=== PATIENT | female | born 1985 | race Caucasian/White ===

== ENCOUNTER → 2017-01-05 | Outpatient (CLI) | payer BC ==
[2017-01-05 16:45] LABS: CH 28.8; CHCM 34.8; HCT 37.9 % (34.0-46.0); HGB 13.2 gm/dL (11.4-16.0); MCH 28.9 pg (25.0-35.0); MCHC 34.8 g/dL (31.0-37.0); MCV 83.1 fL (80.0-100.0); Mean Platelet Volume 7.5; RBC 4.56 m/uL (3.80-5.40); RDW 13.6 % (11.5-15.5); WBC 8.4 k/uL (3.8-10.6)
--- NOTE | 2017-01-05 21:21 | US ---
EXAMINATION TYPE: US pelvic complete DATE OF EXAM: 01/05/2017 COMPARISON: US CLINICAL HISTORY: N92.1 Menometrorrhagia. Patient stated has had continual menses since last delivery via C section 11.5 months ago; . TECHNIQUE: Transvaginal (TV) as patient chose this method since bladder was not full. ) Date of LMP: normal LMP approximately 3 weeks ago per patient EXAM MEASUREMENTS: Uterus: 8.4 x 5.8 x 4.6 cm Endometrial Stripe: 1.0 cm Right Ovary: 3.1 x 2.5 x 2.9 cm Left Ovary: 2.9 x 2.7 x 1.6 cm 1. Uterus: Anteverted; C section scar is noted in FATIMAH; multiple small Nabothian cysts are imaged wit h largest = 0.3 x 0.3 x 0.3cm 2. Endometrium: thickness is wnl correlating with LMP approximately 3 weeks prior 3. Right Ovary: multiple small follicles with largest = 1.2 x 0.8 x 0.8cm; color flow is seen in parag ateral ovary. 4. Left Ovary: multiple small follicles; color flow is seen in bilateral ovary. 5. Bilateral Adnexa: wnl 6. Posterior cul-de-sac: wnl Uterus is heterogeneous in appearance and retroverted and shape. Endometrium measures up to just unde r 10 mm., This is within normal limits for secretory phase of menstrual cycle. No free fluid is seen in pelvis. Both ovaries are seen with multiple peripheral follicles. No suspicious adnexal masses are present. IMPRESSION: No suspicious finding is seen to account for patient's symptoms.
== END | disposition home or self-care (01) ==
LOC: RADUSWWP 15:30
PROVIDERS: ATTEND Obstetrics & Gynecology
DX: N92.1 Excessive and frequent menstruation with irregular cycle (principal)
CPT/HCPCS: 76830; 83001; 83002; 84146; 84443; 85027

== ENCOUNTER 2017-02-11 06:41 | Day surgery (SDC) | payer BC ==
[2017-02-09 10:55] VITALS: BMI 33.3
[~2017-02-11 06:41] MED LIST: DEXAMETHASONE SOD PHOSPHATE 10 MG/ML 1 ML VIAL IV ONE; HYDROmorphone 0.5 MG/0.5 ML SYRINGE IVP PRN; LACTATED RINGERS 1,000 ML IV SCH; MIDAZOLAM 2 MG/2 ML VIAL IV PRN; ONDANSETRON 4 MG/2 ML VIAL IVP ONE; Pre Op ABX Message 1 EACH MISC MISCELLANE ONE
[2017-02-11] MEDS ORDERED: LIDOCAINE 1% 20 ML VIAL (10MG/ML) FOR IV START INTRADERMA ONE (07:07)
[2017-02-11 07:10] VITALS: RESP 16
[2017-02-11] MEDS ORDERED: SCOPOLAMINE 1.5MG/72HR PATCH TRANSDERM ONE (07:10)
[2017-02-11] MEDS ORDERED: LIDOCAINE 1% INJ 10MG/ML (20 ML MDV) ONE (07:43)
[2017-02-11] MEDS ORDERED: fentaNYL (PF) 50 MCG/ML 2 ML AMP ONE (07:43)
[2017-02-11] MEDS ORDERED: PROPOFOL 10 MG/ML 20 ML VIAL IV ONE (07:43)
[2017-02-11] MEDS ORDERED: MIDAZOLAM 2 MG/2 ML VIAL ONE (07:43)
--- NOTE | 2017-02-11 08:11 | P.HPOB ---
History of Present Illness H&P Date: 02/11/17 Chief Complaint: Menorrhagia Lynda complains of very heavy bleeding each cycle. She is uncomfortable with bleeding and has a difficult time function while she is on her period. She is scheduled for a D&C with hysteroscopy NovaSure ablation. Risks/benefits/ alternatives to this procedure were discussed with patient in detail and all questions are answered for her prior to proceeding to the operating room. On physical exam this is an overweight female whose HEENT is unremarkable. Heart regular, lungs clear, extremities without pain. Pelvic exam is otherwise unremarkable. Abdomen soft nontender positive bowel sounds are noted. Assessment menorrhagia. Plan D&C with hysteroscopy NovaSure. Past Medical History Past Medical History: GERD/Reflux Additional Past Medical History / Comment(s): x2 Gestational diabetes (2014 & 2015), states non-alcoholic liver disease. History of Any Multi-Drug Resistant Organisms: None Reported Past Surgical History: Section, Tubal Ligation Additional Past Surgical History / Comment(s): x2 Past Anesthesia/Blood Transfusion Reactions: Motion Sickness, Postoperative Nausea & Vomiting (PONV) Past Psychological History: Depression Additional Psychological History / Comment(s): post depression Smoking Status: Former smoker Past Alcohol Use History: None Reported Additional Past Alcohol Use History / Comment(s): quit smoking 2011. smoked 1ppd, smoked 6 years. Past Drug Use History: None Reported - Past Family History Father Family Medical History: Diabetes Mellitus Mother Family Medical History: Diabetes Mellitus, Deep Vein Thrombosis (DVT), Pulmonary Embolus Sister(s) Family Medical History: Deep Vein Thrombosis (DVT) Medications and Allergies Home Medications Medication Instructions Recorded Confirmed Type Sertraline [Zoloft] 100 mg PO BID 09/12/15 02/11/17 History Atorvastatin [Lipitor] 10 mg PO DAILY 02/09/17 02/11/17 History Ranitidine HCl [Zantac] 150 mg PO BID 02/09/17 02/11/17 History Ibuprofen [Motrin] 600 mg PO Q6HR PRN #30 tab 02/11/17 Rx Allergies Allergy/AdvReac Type Severity Reaction Status Date / Time No Known Allergies Allergy Verified 02/11/17 07:00 Exam Osteopathic Statement: *. No significant issues noted on an osteopathic structural exam other than those noted in the History and Physical/Consult. - Vital Signs Vital signs: Vital Signs Temp Pulse Resp BP Pulse Ox 02/11/17 07:08 97.6 F 76 16 135/70 97 Intake and Output 02/10/17 02/11/17 02/11/17 22:59 06:59 14:59 Intake Total 200 Balance 200 Intake: IV 200
--- NOTE | 2017-02-11 08:13 | P.OP ---
Date of Procedure: 02/11/17 Preoperative Diagnosis: Menorrhagia Postoperative Diagnosis: Same Procedure(s) Performed: D&C with hysteroscopy and NovaSure Anesthesia: KRISTI Surgeon: Abilio Walker Estimated Blood Loss (ml): 5 Pathology: other (Uterine curettings) Condition: stable Disposition: same day Operative Findings: Proliferative endometrium Description of Procedure: Patient was taken to the operating suite where a general anesthetic was found be adequate. She was prepped and draped in the normal sterile fashion and placed in dorsal lithotomy position. Initially a speculum was inserted into the vagina and the anterior lip of the cervix identified and grasped with an Allis clamp. Cervix was verified to be dilated. And then sounded to 8-1/2 cm. Once this was accomplished camera was inserted. Proliferative endometrium was noted. Camera was then removed and sharp curettings of the endometrium were obtained and placed on Telfa and sent to pathology. Once this was accomplished overture system was brought in with a length of 4-1/2 and a width of 3 it was tested. Once it passes patency test it was enabled and was activated. The burn lasted for 2 minutes. At the conclusion of the procedure camera was reinserted excellent burn was noted therefore instruments were removed sponge, lap, needle counts were all correct 2. Patient was then taken to the recovery room in stable and satisfactory condition. Plan - Discharge Summary New Discharge Prescriptions: New Ibuprofen [Motrin] 600 mg PO Q6HR PRN #30 tab PRN Reason: Pain No Action Sertraline [Zoloft] 100 mg PO BID Ranitidine HCl [Zantac] 150 mg PO BID Atorvastatin [Lipitor] 10 mg PO DAILY Discharge Medication List Sertraline [Zoloft] 100 mg PO BID 09/12/15 [History] Atorvastatin [Lipitor] 10 mg PO DAILY 02/09/17 [History] Ranitidine HCl [Zantac] 150 mg PO BID 02/09/17 [History] Ibuprofen [Motrin] 600 mg PO Q6HR PRN #30 tab 02/11/17 [Rx] Follow up Appointment(s)/Referral(s): Abilio Walker DO [Doctor of Osteopathic Medicine] - 2 Weeks Patient Instructions/Handouts: *Surgery [facility] - Scopalamine Patch Instructions Activity/Diet/Wound Care/Special Instructions: No heavy Lifting, limit stairs and driving and pelvic rest. If any high temperatures, heavy bleeding, or severe pain call my office Discharge Disposition: HOME SELF-CARE
[2017-02-11] MEDS ORDERED: KETOROLAC 30 MG/ML 1 ML VIAL IVP ONE (08:23)
[2017-02-11 08:34] VITALS: TEMP 97
[2017-02-11 10:06] VITALS: BP 119/75; PULSE 78
== END 2017-02-11 10:30 | disposition home or self-care (01) ==
LOC: OR 06:41
PROVIDERS: ATTEND Obstetrics & Gynecology
DX: N92.1 Excessive and frequent menstruation with irregular cycle (principal); K21.9 Gastro-esophageal reflux disease without esophagitis; Z98.51 Tubal ligation status; F32.9 Major depressive disorder, single episode, unspecified; Z79.899 Other long term (current) drug therapy; Z87.891 Personal history of nicotine dependence
CPT/HCPCS: 81025; 88305; 58563; J2250; J1100; J2405; J2001; J3010; J1885; J2704

== ENCOUNTER → 2017-03-09 | Outpatient (CLI) | payer BC ==
[2017-03-09 13:27] LABS: Basophils # (A) 0.1 k/uL (0-0.2); Basophils % (A) 1 %; Eosinophils # (A) 0.3 k/uL (0-0.7); Eosinophils % (A) 4 %; HCT 41.3 % (34.0-46.0); HGB 13.8 gm/dL (11.4-16.0); Lymphocytes % (A) 25 %; MCH 27.7 pg (25.0-35.0); MCHC 33.4 g/dL (31.0-37.0); MCV 82.9 fL (80.0-100.0); Mean Platelet Volume 7.4; Monocytes # (A) 0.4 k/uL (0-1.0); Monocytes % (A) 5 %; Neutrophils % (A) 64 %; Platelet Count 216 k/uL (150-450); RBC 4.99 m/uL (3.80-5.40); RDW 14.7 % (11.5-15.5); WBC 7.9 k/uL (3.8-10.6)
[2017-03-09 13:42] LABS: Appearance,Urine Clear (Clear); Bilirubin,Urine Negative (Negative); Blood,Urine Negative (Negative); Color,Urine Light Yellow; Glucose,Urine (UA) Negative (Negative); Ketones,Urine Negative (Negative); Leukocyte Esterase,Urine Negative (Negative); Nitrite,Urine Negative (Negative); PH, Urine 5.5 (5.0-8.0); Protein,Urine Negative (Negative); Specific Gravity,Urine 1.004 (1.001-1.035); Urobilinogen,Urine <2.0 mg/dL (<2.0)
[2017-03-09 13:56] LABS: Anion Gap 12 mmol/L; Blood Urea Nitrogen 9 mg/dL (7-17); Calcium 9.9 mg/dL (8.4-10.2); Carbon Dioxide 29 mmol/L (22-30); Chloride 102 mmol/L (98-107); Glucose 91 mg/dL (74-99); Potassium 4.6 mmol/L (3.5-5.1); Sodium 143 mmol/L (137-145)
== END | disposition home or self-care (01) ==
LOC: LABWHC1 12:33
PROVIDERS: ATTEND Urology
DX: Z01.812 Encounter for preprocedural laboratory examination (principal); N39.3 Stress incontinence (female) (male)
CPT/HCPCS: 36415; 80048; 81003; 85025; 87086

== ENCOUNTER 2017-03-17 09:31 | Observation (INO) | payer BC ==
[2017-03-12 09:36] VITALS: BMI 33.3
[~2017-03-17 09:31] MED LIST changes: -DEXAMETHASONE SOD PHOSPHATE 10 MG/ML 1 ML VIAL IV ONE; +DEXAMETHASONE SOD PHOSPHATE 10 MG/ML 1 ML VIAL IV STA; -HYDROmorphone 0.5 MG/0.5 ML SYRINGE IVP PRN; -MIDAZOLAM 2 MG/2 ML VIAL IV PRN; -ONDANSETRON 4 MG/2 ML VIAL IVP ONE; +ONDANSETRON 4 MG/2 ML VIAL IVP STA; -Pre Op ABX Message 1 EACH MISC MISCELLANE ONE; +ceFAZolin 1,000 MG in DEXTROSE/WATER 1 50ML.BAG IV ONE; +fentaNYL (PF) 50 MCG/ML 2 ML AMP IV PRN
[2017-03-17] MEDS ORDERED: LIDOCAINE 1% 20 ML VIAL (10MG/ML) FOR IV START INTRADERMA ONE (09:40)
[2017-03-17] MEDS ORDERED: SCOPOLAMINE 1.5MG/72HR PATCH TRANSDERM ONE (09:54)
[2017-03-17] MEDS ORDERED: HYDROmorphone (PF) 1 MG/ML ONE (09:59)
[2017-03-17] MEDS ORDERED: fentaNYL (PF) 50 MCG/ML 2 ML AMP ONE (09:59)
[2017-03-17] MEDS ORDERED: NEOSTIGMINE 1 MG/ML 10 ML VIAL ONE (09:59)
[2017-03-17] MEDS ORDERED: SUCCINYLCHOLINE CHLORIDE 100 MG/5 ML SYR IV ONE (09:59)
[2017-03-17] MEDS ORDERED: MIDAZOLAM 2 MG/2 ML VIAL ONE (09:59)
[2017-03-17] MEDS ORDERED: LIDOCAINE 1% INJ 10MG/ML (20 ML MDV) ONE (09:59)
[2017-03-17] MEDS ORDERED: KETOROLAC 30 MG/ML 1 ML VIAL ONE (09:59)
[2017-03-17] MEDS ORDERED: PROPOFOL 10 MG/ML 20 ML VIAL IV ONE (09:59)
[2017-03-17] MEDS ORDERED: ROCURONIUM BROMIDE 10 MG/ML 10 ML VIAL IV ONE (09:59)
[2017-03-17] MEDS ORDERED: GLYCOPYRROLATE 0.2 MG/ML 2 ML VIAL ONE (09:59)
[2017-03-17] MEDS ORDERED: VASOPRESSIN 20 UNIT/ML 1 ML VIAL SQ ONE (10:20)
[2017-03-17] MEDS ORDERED: GENTAMICIN 80 MG in SODIUM CHLORIDE 0.9% 500 ML IRRIGATION ONE (10:25)
[2017-03-17] MEDS ORDERED: LACTATED RINGERS 1,000 ML IV ONE (10:57)
[2017-03-17] MEDS ORDERED: ONDANSETRON 4 MG/2 ML VIAL IVP PRN (11:07)
[2017-03-17] MEDS ORDERED: HYDROcodone/APAP 7.5-325MG 1 EACH TAB PO PRN (11:07)
[2017-03-17] MEDS ORDERED: PROMETHAZINE INJ 25 MG/ML 1 ML VIAL IVPB ONE (11:24)
--- NOTE | 2017-03-17 11:26 | P.OP ---
Date of Procedure: 03/17/17 Preoperative Diagnosis: urinary incontinence Postoperative Diagnosis: stress urinary incontinence Procedure(s) Performed: pubo-vaginal sling with rectus fascia graft, cystoscopy Anesthesia: DMITRYA Surgeon: Mark Murguia Estimated Blood Loss (ml): 200 Pathology: none sent Condition: stable Disposition: PACU Indications for Procedure: the patient is a 31-year-old female with a history of stress incontinence for several years. This is documented on history physical examination and urodynamics. She comes for a pubovaginal sling with autologous fascia because of a younger age. Description of Procedure: the patient is brought to the operating suite. She is given a successful general endotracheal anesthesia. She's placed in lithotomy position with a sterile prep and drape. A Pink catheters introduced sterilely. The labia are sewn laterally with 2-0 silk. A vaginal speculum is placed into the vagina. The anterior vaginal mucosa was elevated off the submucosa with a mixture of 20 units of Pitressin and 60 mL of saline. A midline suburethral incision is made. I dissect lateral to the bladder neck with Metzenbaum scissors. I approached the suprapubic region. A make a Pfannenstiel incision down through the subcutaneous tissue to the rectus fascia. It is scarred from previous . An ellipse of 2 x 8 cm of fascia is removed. the fascia is then closed with 2 running 0 PDS stitches. I then passed the Stamey needle retropubically at the corners of the pubis into the vaginal space previously created. Prior to this i placed 2-0 prolene stitches thru the fascial graft The stamey needles are pulled suprapubically The graft is secured suburethrally with 3-0 vicryl I inspect the urethra and bladder with the cystoscope and donot see any evidence of bladder perforation from the stamey needle passage The bladder neck elevates nicely THe vaginall mucosa is clsed with a running 3-0 vicryl THe prolene stictches are then tied over the rectus fascia such that 1-2 fingerbreadths fit between the stitch and the fascia. The skin is closed with a 4-0 vicryl running the patient is awakened and returned to in good condition ebl is 200
[2017-03-17] MEDS: HYDROmorphone 2 MG/ML 1 ML SYRINGE IVP ONE ×2 (11:50→11:58)
[2017-03-17] MEDS ORDERED: Acetaminophen-Codeine 300-30mg TAB PO PRN (14:32)
[2017-03-17] MEDS: Acetaminophen-Codeine 300-30mg TAB PO PRN ×2 (14:46→19:10)
[2017-03-17] MEDS: DEXTROSE 5%-0.45% NACL 1,000 ML IV SCH (14:49)
[2017-03-17] MEDS: KETOROLAC 30 MG/ML 1 ML VIAL IVP PRN ×2 (16:07→22:00)
[2017-03-17 20:45] VITALS: RESP 16
[2017-03-17] MEDS: FAMOTIDINE 20 MG TAB PO SCH (21:02)
[2017-03-17] MEDS: SERTRALINE 100 MG TAB PO SCH (21:02)
[2017-03-18] MEDS: Acetaminophen-Codeine 300-30mg TAB PO PRN ×4 (01:08→19:59)
[2017-03-18] MEDS: KETOROLAC 30 MG/ML 1 ML VIAL IVP PRN ×2 (04:15→09:47)
[2017-03-18] MEDS: DEXTROSE 5%-0.45% NACL 1,000 ML IV SCH ×2 (05:21→21:22)
[2017-03-18] MEDS: SERTRALINE 100 MG TAB PO SCH (09:48)
[2017-03-18] MEDS: ATORVASTATIN 10 MG TAB PO SCH (09:48)
[2017-03-18] MEDS: FAMOTIDINE 20 MG TAB PO SCH (09:49)
--- NOTE | 2017-03-18 12:29 | P.PN ---
Subjective Progress Note Date: 03/18/17 The patient is in her first postoperative day from a pubovaginal sling with autologous tissue. Her first attempt at voiding was incomplete. I will continue to monitor her residual urines. If she voids to completion she can be discharged home later today. She does not void to completion she'll either learn how to self cath or remain in the hospital till tomorrow. Objective - Vital Signs Vital signs: Vital Signs Temp 98.0 F 03/18/17 08:00 Pulse 67 03/18/17 08:00 Resp 16 03/18/17 08:00 BP 104/57 03/18/17 08:00 Pulse Ox 94 L 03/18/17 08:00 Intake & Output 03/17/17 03/18/17 03/18/17 18:59 06:59 18:59 Intake Total 1851 1710 Output Total 1200 2020 1000 Balance 651 -310 -1000 Intake: IV 1551 Intake, IV Titration 300 710 Amount Dextrose 5%-0.45% NaCl 1, 710 000 ml @ 75 mls/hr IV . [id number] [facility] Rx#:[id number] Lactated Ringers 1,000 ml 300 As IV .[facility] Rx#: [id number] Oral 1000 Output: Urine 1000 2020 1000 Uretheral (Pink) 710 Estimated Blood Loss 200 Other: Voiding Method Indwelling Catheter # Voids 1 1
[2017-03-18] MEDS: IBUPROFEN 800 MG TAB PO PRN (16:19)
[2017-03-19] MEDS: FAMOTIDINE 20 MG TAB PO SCH ×2 (00:25→09:43)
[2017-03-19] MEDS: SERTRALINE 100 MG TAB PO SCH ×2 (00:25→09:43)
[2017-03-19] MEDS: IBUPROFEN 800 MG TAB PO PRN (02:16)
--- NOTE | 2017-03-19 07:42 | P.DS ---
Providers Date of admission: 03/18/17 00:27 Attending physician: Mark Murguia Primary care physician: [facility] Course: The patient is a 31-year-old female with stress urinary incontinence. She underwent a pubovaginal sling 03/17/2017. Postoperatively she has done well other than she has had incomplete voiding. She has been taught self intermittent catheterization. Wound looks good. She'll be discharged home today. She will catheterize as postvoid residuals until her residuals are continuously less than 150 mL. Record the voided and residual volume. She will follow-up in the office on Wednesday for further clarification of how she is voiding. She'll liberalize her activity. Prescription for Tylenol with codeine has been given. Her condition upon discharge is good. Patient Condition at Discharge: Good Plan - Discharge Summary Discharge Rx Participant: Yes New Discharge Prescriptions: New Acetaminophen with Codeine [Tylenol w/codeine #3] 1 tab PO Q4H PRN #20 tab PRN Reason: Pain No Action Sertraline [Zoloft] 100 mg PO BID Ranitidine HCl [Zantac] 150 mg PO BID Atorvastatin [Lipitor] 10 mg PO DAILY Discharge Medication List Sertraline [Zoloft] 100 mg PO BID 09/12/15 [History] Atorvastatin [Lipitor] 10 mg PO DAILY 02/09/17 [History] Ranitidine HCl [Zantac] 150 mg PO BID 02/09/17 [History] Acetaminophen with Codeine [Tylenol w/codeine #3] 1 tab PO Q4H PRN #20 tab 03/19 [Rx] Follow up Appointment(s)/Referral(s): Mark Murguia MD [STAFF PHYSICIAN] - 03/22/17 Activity/Diet/Wound Care/Special Instructions: The patient should go home with self catheterization. She should catheterize after each voided attempt. She should record the voided and catheterized volumes separately. She should be given 3/14-[place] female catheters plus sterile lubrication. If she is unable to catheterize she should go to the emergency room to have a catheter placed or contact my office. She should be seen in the office on Wednesday. She should resume her home medication. A written a prescription of Tylenol with codeine. She can also take Motrin 800 mg 3 times a day. He should resume her home medications. Discharge Disposition: HOME SELF-CARE
[2017-03-19] MEDS: Acetaminophen-Codeine 300-30mg TAB PO PRN (09:41)
[2017-03-19] MEDS: ATORVASTATIN 10 MG TAB PO SCH (09:43)
[2017-03-19 11:12] VITALS: BP 106/70; PULSE 67; TEMP 97.7
== END 2017-03-19 13:28 | disposition home or self-care (01) ==
LOC: OR 09:31 → 4FBP 11:58 → OR 03-18 00:26 → 4FBP 03-18 00:27
PROVIDERS: ADMIT Urology; ATTEND Urology
DX: N39.3 Stress incontinence (female) (male) (principal); N36.41 Hypermobility of urethra; R33.9 Retention of urine, unspecified; F32.9 Major depressive disorder, single episode, unspecified; R12 Heartburn; Z79.899 Other long term (current) drug therapy; Z98.51 Tubal ligation status
CPT/HCPCS: 57288; 81025; G0378 ×2; J2250; J1170 ×2; J1580; J1100; J2550; J2710; J2405; J2001; J3010; J1885 ×2; J0690; J0330; J2704

== ENCOUNTER → 2017-04-14 | Outpatient (CLI) | payer BC ==
--- NOTE | 2017-04-14 09:05 | US ---
EXAMINATION TYPE: US liver DATE OF EXAM: 04/14/2017 COMPARISON: Prior liver ultrasound December 22, 2016 CLINICAL HISTORY: R74.8 abnormal liver enzymes. Follow up, elevated enzymes EXAM MEASUREMENTS: Liver Length: 21.8 cm Gallbladder Wall: 0.1 cm CBD: 0.5 cm CHD: 0.4 cm Right Kidney: 12.3 x 5.1 x 4.0 cm Pancreas: Appears slightly heterogenous Liver: Increased attenuation, decreased visualization of vessels suggestive of fatty infiltrate. En larged. Areas of focal sparing seen. Gallbladder: Echogenic nonmobile nonshadowing lesion seen adjacent to wall = 0.8 x 0.5 cm probable s mall polyp. Evidence for sonographic Henderson's sign: neg CBD: wnl CHD: wnl Right Kidney: wnl Heterogeneous hyperechoic liver redemonstrated. Evaluation for focal masses suboptimal due to the het erogeneity. IMPRESSION: Probable diffuse fatty infiltration of liver redemonstrated. No significant change from p rior. Imaging guided random biopsy for tissue analysis can be performed if desired.
== END | disposition home or self-care (01) ==
LOC: RADUSWWP 08:24
DX: R74.8 Abnormal levels of other serum enzymes (principal)
CPT/HCPCS: 76705

== ENCOUNTER → 2017-04-22 | Outpatient (CLI) | payer BC ==
[2017-04-22 11:44] LABS: Albumin 4.6 g/dL (3.5-5.0); Bilirubin, Delta 0.3 mg/dL (0.0-0.2); Total Bilirubin 0.3 mg/dL (0.2-1.3); Total Protein 7.9 g/dL (6.3-8.2)
== END | disposition home or self-care (01) ==
LOC: LABWHC1 10:59
DX: R74.8 Abnormal levels of other serum enzymes (principal)
CPT/HCPCS: 36415; 80076

== ENCOUNTER 2017-07-23 19:37 | Emergency (ER) | payer BC ==
[2017-07-23 20:17] VITALS: BP 144/73; PULSE 65; RESP 18; TEMP 98.5
--- NOTE | 2017-07-23 20:53 | XR ---
EXAMINATION TYPE: XR ankle complete RT DATE OF EXAM: 07/23/2017 CLINICAL HISTORY: Pain after fall injury today. TECHNIQUE: Frontal, lateral and oblique images of the right ankle are obtained. COMPARISON: Right ankle x-ray November 25, 2015 FINDINGS: There is no acute fracture/dislocation evident in the right ankle. The ankle mortise appe ars within normal limits. The overlying soft tissue appears unremarkable. IMPRESSION: There is no acute fracture or dislocation in the right ankle. No significant change from prior.
--- NOTE | 2017-07-23 20:54 | XR ---
EXAMINATION TYPE: XR ankle complete LT, XR foot complete LT DATE OF EXAM: 07/23/2017 CLINICAL HISTORY: Pain after fall injury today. TECHNIQUE: Frontal, lateral and oblique images of the left ankle and foot are obtained. COMPARISON: None. FINDINGS: There is no acute fracture/dislocation evident in the left ankle. The ankle mortise appea rs within normal limits. The overlying soft tissue appears unremarkable. There is no acute fracture or dislocation evident in the left foot. Some flexion in the toes is pres ent. The joint spaces in the left foot are preserved. Overlying soft tissue is unremarkable. IMPRESSION: There is no acute fracture or dislocation in the left ankle or foot.
--- NOTE | 2017-07-23 21:08 | ED ---
General Adult HPI - General Stated complaint: Fall, ankle injury Time Seen by Provider: 07/23/17 20:10 Source: patient, RN notes reviewed Mode of arrival: ambulatory Limitations: no limitations - History of Present Illness Initial comments: 31-year-old female presents to the emergency department for a chief complaint of bilateral ankle injury times one day. Patient states that earlier today she fell down 4 stairs and injured both her ankles. Patient denies hitting her head or loss of consciousness. No headache, nausea or vomiting, or confusion. Patient denies pain in the rest of the lower extremities bilaterally including the knees and hips. Patient denies any other injuries occurring from the fall. Patient has not taken Motrin or Tylenol. Patient denies any chance of . Patient has no other complaints at this time including shortness of breath, chest pain, abdominal pain, nausea or vomiting, headache, or visual changes. - Related Data Home Medications Medication Instructions Recorded Confirmed Sertraline [Zoloft] 100 mg PO BID 09/12/15 06/23/17 Atorvastatin [Lipitor] 10 mg PO DAILY 02/09/17 06/23/17 Ranitidine HCl [Zantac] 150 mg PO BID 02/09/17 06/23/17 Previous Rx's Medication Instructions Recorded Ibuprofen [Motrin] 600 mg PO Q8HR PRN #20 tab 07/23/17 Allergies Allergy/AdvReac Type Severity Reaction Status Date / Time No Known Allergies Allergy Verified 07/23/17 20:17 Review of Systems ROS Statement: Those systems with pertinent positive or pertinent negative responses have been documented in the HPI. ROS Other: All systems not noted in ROS Statement are negative. Past Medical History Past Medical History: GERD/Reflux, Hyperlipidemia Additional Past Medical History / Comment(s): Hx. Gestational diabetes. History of Any Multi-Drug Resistant Organisms: None Reported Past Surgical History: Bladder Surgery, Section, Tubal Ligation, Uterine Ablation Additional Past Surgical History / Comment(s): Pubo-vaginal sling. Past Anesthesia/Blood Transfusion Reactions: Family History of Problems w/ Anesthesia, Postoperative Nausea & Vomiting (PONV) Additional Past Anesthesia/Blood Transfusion Reaction / Comment(s): Family members with PONV. Past Psychological History: Depression Smoking Status: Former smoker Past Alcohol Use History: Occasional Past Drug Use History: None Reported - Past Family History Father Family Medical History: Diabetes Mellitus Mother Family Medical History: Diabetes Mellitus, Deep Vein Thrombosis (DVT), Pulmonary Embolus Sister(s) Family Medical History: Deep Vein Thrombosis (DVT) General Exam - General Exam Comments Initial Comments: Left lower extremity: Patient has limited plantar and dorsi flexion of the left ankle. Patient has tenderness over the lateral malleolus and lateral aspect of the left foot. No tenderness elsewhere in the left foot. Pedal pulse 2+ and capillary refill less than 2 seconds. No lacerations or abrasions. There is mild swelling on the lateral aspect of the left foot. No ecchymosis noted. Sensation intact. Right lower extremity: Patient has full range of motion of the right ankle including plantar and dorsi flexion. Patient is able to bear weight on the right ankle. Patient has some tenderness over the lateral aspect of the right ankle. No tenderness over the foot. Pedal pulse 2+. Sensation intact. Capillary refill less than 2 seconds. No abrasions or lacerations. No swelling or ecchymosis noted. Limitations: no limitations General appearance: alert, in no apparent distress Course Vital Signs 07/23/17 20:11 Temperature 98.5 F Pulse Rate 65 Respiratory 18 Rate Blood Pressure 144/73 O2 Sat by Pulse 99 Oximetry Medical Decision Making - Medical Decision Making 31 year old female presents to the emergency department for a chief complaint of bilateral ankle pain times one day. Patient fell down the stairs injuring both her ankles. Patient did not sustain any other injuries or hitting her head. On exam patient has limited range motion of the left ankle but full range motion of the right ankle. Left ankle has tenderness to the lateral aspect as well as the left foot. Right ankle has tenderness to the lateral aspect as well noted tenderness in the right foot. Neurovascular intact in both extremities bilaterally. X-ray demonstrates no acute fracture or dislocation in the left foot or ankle. X-ray of the right ankle also shows no acute fracture or dislocation. Patient likely has an ankle sprain of the left ankle and contusion of the right ankle. Patient was wrapped with an Sami wrap. Patient will buy crutches at a pharmacy. She will try to remain nonweightbearing on the left ankle. She will rest ice and elevate the ankles. She will take Motrin for pain. Patient denies chance of . Patient will follow-up with orthopedics in one to 2 days. She will return to the emergency Department if she has any other worsening symptoms. Disposition Clinical Impression: Bilateral ankle pain Disposition: HOME SELF-CARE Condition: Good Instructions: Ankle Sprain (ED), RICE Therapy (ED) Additional Instructions: Please take Motrin and Tylenol for pain. Please rest ice and elevate the ankle. Use crutches as necessary. Follow-up with primary care or orthopedics in one to 2 days. If symptoms continue for 7-10 days you may need repeat x-rays Prescriptions: Ibuprofen [Motrin] 600 mg PO Q8HR PRN #20 tab PRN Reason: Pain Is patient prescribed a controlled substance at d/c from ED?: No Referrals: Caden Maher MD [Primary Care Provider] - 1-2 days Liam Lou DO [Doctor of Osteopathic Medicine] - 1-2 days Time of Disposition: 21:03
== END 2017-07-23 22:01 | disposition home or self-care (01) ==
LOC: EC 19:37
DX: M25.572 Pain in left ankle and joints of left foot (principal); M25.571 Pain in right ankle and joints of right foot; K21.9 Gastro-esophageal reflux disease without esophagitis; E78.5 Hyperlipidemia, unspecified; F32.9 Major depressive disorder, single episode, unspecified; Z87.891 Personal history of nicotine dependence; Z79.899 Other long term (current) drug therapy; W10.9XXA Fall (on) (from) unspecified stairs and steps, initial encounter; Y92.89 Other specified places as the place of occurrence of the external cause
CPT/HCPCS: 99283

== ENCOUNTER → 2018-09-06 | Outpatient (CLI) | payer BC ==
--- NOTE | 2018-09-06 14:12 | US ---
EXAMINATION TYPE: US venous doppler duplex LE LT DATE OF EXAM: 09/06/2018 11:18 AM COMPARISON: NONE CLINICAL HISTORY: M79.669 PAIN IN UNSPECIFIED LOWER LEG. Pt states left calf pain/ no known history o f DVT, not on blood thinners SIDE PERFORMED: Left TECHNIQUE: The lower extremity deep venous system is examined utilizing real time linear array sonog mayra with graded compression, doppler sonography and color-flow sonography. VESSELS IMAGED: External Iliac Vein (EIV) Common Femoral Vein Deep Femoral Vein Greater Saphenous Vein * Femoral Vein Popliteal Vein Small Saphenous Vein * Proximal Calf Veins (* superficial vessels) There is normal flow, compressibility, vascular waveforms. Left Leg: Negative for DVT IMPRESSION: No evident deep venous thrombosis at or above the left knee
== END | disposition home or self-care (01) ==
LOC: RADUSWWP 11:02
PROVIDERS: ATTEND Family Medicine
DX: M79.669 Pain in unspecified lower leg (principal)

== ENCOUNTER → 2019-04-11 | Outpatient (CLI) | payer BC ==
[2019-04-11 17:50] LABS: T4, Free (Free Thyroxine) 0.97 ng/dL (0.78-2.19)
[2019-04-12 00:18] LABS: Luteinizing Hormone 0.9 mIU/mL; Prolactin 5.7 ng/mL (2.8-29.2)
[2019-04-12 00:19] LABS: Follicle Stimulating Hormone 3.2 mIU/mL
--- NOTE | 2019-04-12 08:41 | US ---
EXAMINATION TYPE: US pelvic complete DATE OF EXAM: 04/11/2019 COMPARISON: US 01/05/2017 CLINICAL HISTORY: N92.0 MENORRHAGIA WITH REGULAR CYCLE. Heavy bleeding during cycles. History of abla tion 2018 that did not work per patient TECHNIQUE: Real-time sector scanning sonography is performed over the pelvis. Date of LMP: March 20, 2019 EXAM MEASUREMENTS: Uterus: 10.4 x 4.6 x 6.5 cm Endometrial Stripe: 1.1 cm Right Ovary: 2.4 x 2.6 x 1.8 cm Left Ovary: 2.5 x 2.1 x 2.1 cm 1. Uterus: Anteverted Heterogeneous 2. Endometrium: Thickened post ablation 3. Right Ovary: wnl 4. Left Ovary: wnl 5. Bilateral Adnexa: wnl 6. Posterior cul-de-sac: wnl Urinary bladder is sonolucent. Posterior wall is normal. IMPRESSION: 1. Prominent endometrial canal 1.1 cm post ablation
== END | disposition home or self-care (01) ==
LOC: RADUSWWP 16:02
PROVIDERS: ATTEND Obstetrics & Gynecology
DX: N92.0 Excessive and frequent menstruation with regular cycle (principal); Z13.29 Encounter for screening for other suspected endocrine disorder; N93.8 Other specified abnormal uterine and vaginal bleeding; Z98.890 Other specified postprocedural states
CPT/HCPCS: 76856; 82670; 83001; 83002; 84146; 84439; 84443; 84479

== ENCOUNTER → 2019-08-01 | Outpatient (CLI) | payer BC ==
[2019-08-01 15:45] LABS: Basophils # (A) 0.1 k/uL (0-0.2); Basophils % (A) 1 %; Eosinophils # (A) 0.2 k/uL (0-0.7); Eosinophils % (A) 2 %; HCT 39.6 % (34.0-46.0); HGB 13.3 gm/dL (11.4-16.0); Lymphocytes # (A) 1.8 k/uL (1.0-4.8); Lymphocytes % (A) 21 %; MCH 28.3 pg (25.0-35.0); MCHC 33.5 g/dL (31.0-37.0); MCV 84.4 fL (80.0-100.0); Mean Platelet Volume 7.1; Monocytes # (A) 0.3 k/uL (0-1.0); Monocytes % (A) 3 %; Neutrophils # (A) 6.3 k/uL (1.3-7.7); Neutrophils % (A) 72 %; Platelet Count 199 k/uL (150-450); RDW 13.2 % (11.5-15.5); WBC 8.7 k/uL (3.8-10.6)
[2019-08-01 16:04] LABS: African American GFR (CKD) >90 (>60 ml/min/1.73 sqM); Anion Gap 11 mmol/L; Blood Urea Nitrogen 10 mg/dL (7-17); Calcium 9.7 mg/dL (8.4-10.2); Carbon Dioxide 25 mmol/L (22-30); Chloride 102 mmol/L (98-107); Glucose 93 mg/dL (74-99); Non-African American GFR(CKD) >90 (>60 ml/min/1.73 sqM); Potassium 4.4 mmol/L (3.5-5.1); Sodium 138 mmol/L (137-145)
== END | disposition home or self-care (01) ==
LOC: LABPAT 15:15
PROVIDERS: ATTEND Obstetrics & Gynecology
DX: Z01.818 Encounter for other preprocedural examination (principal)
CPT/HCPCS: 80048; 85025; 86850; 86900; 86901; 93005

== ENCOUNTER 2019-08-03 06:08 | Observation (INO) | payer BC ==
[2019-08-01 09:57] VITALS: BMI 31.6
--- NOTE | 2019-08-02 10:36 | P.HPOB ---
History of Present Illness H&P Date: 08/02/19 Chief Complaint: Menorrhagia with failed NovaSure Claribel is a 33-year-old female who underwent a NovaSure for heavy vaginal bleeding 2016. She is had continued heavy vaginal bleeding since that time and it severely limits her ability to function. Due to how heavy her bleeding as she is unable to leave the house much of the time and the bleeding has also now become very irregular. She is scheduled for a robotic-assisted laps scopic hysterectomy with salpingectomy bilaterally possible NEO and possible BSO. Risks/benefits/alternatives were reviewed with the patient in detail and all questions were answered for her prior to proceeding to the operating room. Risks did include but were not limited to bleeding/infection/damage to bladder/bowel/nerves/vessels/ureters. Potential need for further surgery. Past Medical History Past Medical History: GERD/Reflux, Hyperlipidemia, Hypertension Additional Past Medical History / Comment(s): Hx. Gestational diabetes., History of Any Multi-Drug Resistant Organisms: None Reported Past Surgical History: Bladder Surgery, Section, Tubal Ligation, Uterine Ablation Additional Past Surgical History / Comment(s): Pubo-vaginal sling. Past Anesthesia/Blood Transfusion Reactions: Family History of Problems w/ Anesthesia, Motion Sickness, Postoperative Nausea & Vomiting (PONV) Additional Past Anesthesia/Blood Transfusion Reaction / Comment(s): Family members with PONV. Smoking Status: Current every day smoker - Past Family History Father Family Medical History: Diabetes Mellitus Mother Family Medical History: Diabetes Mellitus, Deep Vein Thrombosis (DVT), Pulmonary Embolus Sister(s) Family Medical History: Deep Vein Thrombosis (DVT) Medications and Allergies Home Medications Medication Instructions Recorded Confirmed Type Desvenlafaxine [Desvenlafaxine ER] 50 mg PO DAILY 08/01/19 08/01/19 History Famotidine [Pepcid] 20 mg PO DAILY PRN 08/01/19 08/01/19 History Hydrochlorothiazide [Hydrodiuril] 50 mg PO DAILY 08/01/19 08/01/19 History Allergies Allergy/AdvReac Type Severity Reaction Status Date / Time No Known Allergies Allergy Verified 08/01/19 09:47 Exam Osteopathic Statement: *. No significant issues noted on an osteopathic structural exam other than those noted in the History and Physical/Consult. - OBG Physical Exam Breast: both: normal (no masses) Abdomen: bowel sounds normal, no diffuse tenderness, no bruit present, no guarding noted, no hepatomegaly, no splenomegaly, no mass Vulva: both: normal Vagina: normal moisture, no discharge Cervix: no lesion, no discharge Uterus: normal size, normal contour Adnexa: both: normal Anus/Rectum: normal perianal skin, no rectal mass, no hemorrhoids, heme negative
[~2019-08-03 06:08] MED LIST changes: +DEXAMETHASONE SOD PHOSPHATE 10 MG/ML 1 ML VIAL IV ONE; -DEXAMETHASONE SOD PHOSPHATE 10 MG/ML 1 ML VIAL IV STA; -LACTATED RINGERS 1,000 ML IV SCH; +MIDAZOLAM 2 MG/2 ML VIAL IV PRN; +ONDANSETRON 4 MG/2 ML VIAL IVP ONE; -ONDANSETRON 4 MG/2 ML VIAL IVP STA; -ceFAZolin 1,000 MG in DEXTROSE/WATER 1 50ML.BAG IV ONE; -fentaNYL (PF) 50 MCG/ML 2 ML AMP IV PRN
[2019-08-03] MEDS ORDERED: SCOPOLAMINE 1.5MG/72HR PATCH TRANSDERM ONE (06:37)
[2019-08-03] MEDS ORDERED: LIDOCAINE 1% (10MG/ML) FOR IV START INTRADERMA ONE (06:55)
[2019-08-03] MEDS: LACTATED RINGERS 1,000 ML IV SCH ×2 (06:55→21:13)
[2019-08-03] MEDS ORDERED: SUCCINYLCHOLINE CHLORIDE 100 MG/5 ML SYR IV ONE (07:30)
[2019-08-03] MEDS ORDERED: MIDAZOLAM 2 MG/2 ML VIAL ONE (07:30)
[2019-08-03] MEDS ORDERED: HYDROmorphone (PF) 1 MG/ML ONE (07:30)
[2019-08-03] MEDS ORDERED: ROCURONIUM BROMIDE 10 MG/ML 5 ML VIAL IV ONE (07:30)
[2019-08-03] MEDS ORDERED: NEOSTIGMINE 1 MG/ML 10 ML VIAL ONE (07:30)
[2019-08-03] MEDS ORDERED: PROPOFOL 10 MG/ML 20 ML VIAL IV ONE (07:30)
[2019-08-03] MEDS ORDERED: GLYCOPYRROLATE 0.2 MG/ML 2 ML VIAL ONE (07:30)
[2019-08-03] MEDS ORDERED: fentaNYL (PF) 50 MCG/ML 2 ML AMP ONE (07:30)
[2019-08-03] MEDS ORDERED: LIDOCAINE 1% INJ 10MG/ML (20 ML MDV) ONE (07:30)
[2019-08-03] MEDS ORDERED: BUPIVACAINE (PF) 0.25% 30 ML VIAL SQ ONE (08:23)
[2019-08-03] MEDS ORDERED: LACTATED RINGERS 1,000 ML IV ONE (08:53)
[2019-08-03] MEDS ORDERED: SIMETHICONE 80 MG CHEWABLE PO PRN (08:54)
[2019-08-03] MEDS ORDERED: ONDANSETRON 4 MG/2 ML VIAL IVP PRN (08:54)
[2019-08-03] MEDS ORDERED: HYDROcodone/APAP 7.5-325MG 1 EACH TAB PO PRN (08:55)
--- NOTE | 2019-08-03 09:01 | P.OP ---
Date of Procedure: 08/03/19 Preoperative Diagnosis: Menorrhagia: Failed NovaSure Postoperative Diagnosis: Same Procedure(s) Performed: Robotic-assisted laparoscopic hysterectomy with bilateral salpingectomy Anesthesia: KRISTI Surgeon: Abilio Walker Assistant Professor Of Art #1: Julissa Astorga Estimated Blood Loss (ml): 50 IV fluids (ml): 800 Urine output (ml): 100 Pathology: other (Uterus, cervix, fallopian tubes) Condition: stable Disposition: floor Operative Findings: Normal female pelvic anatomy. Await tissue pathology Description of Procedure: Patient was taken to the operating suite where a general anesthetic was found be adequate. She was prepped and draped in the normal sterile fashion and placed in dorsal lithotomy position. Initially a weighted speculum was inserted into the vagina and the anterior lip of cervix identified and grasped with single- tooth tenaculum. Uterus was then sounded to 10 cm and cup size was measured to 3 cm. Sutures were placed at 3 and 9 to assist in removal. Carine manipulator was then inserted without difficulty and maximal Ascent on the abdomen was noted. Pink cath was then placed all the other incidents removed and gloves were changed. Attention was then turned to the abdominal portion of the procedure where 2 mL of quarter percent Marcaine was injected's 1 cm above the umbilicus. Through this injected anesthetic a 5 mm skin incision was made and through this incision under direct visualization with an optical trocar and sleeve the camera was inserted. Once peritoneal placement was assured gas was allowed to fully insufflate the abdomen and patient was then placed in steep Trendelenburg position. A second and third ports were then placed 10 cm lateral to the umbilicus under direct visualization and a fourth port and sleeve were inserted between the left lateral and the medial port 31 cm incision. Camera port was exchanged for a robotic port and robot was then brought in and docked. Once this was accomplished with a scissor and the one arm and a [place] grasper in the second surgical port I did break scrub and go to the console. Observations the pelvis were noted. Uterus was then elevated first the left fallopian tube was identified cauterized and transected and removed. Once completed utero-ovarian layer was identified cauterized and transected. Moving through the broad ligament surrounding tissue was again transected incised in t he right bounding was also transected incised and then anterior posterior leafs of the broad ligament were felt fully down to basically the level the bladder flap. Uterus was then retroverted and bladder identified and undermined with [place] and incised across face uterus bluntly dissected out of the operative field. Left uterine vasculature was then cauterized. Once this was completed, uterus was then tipped to the left-hand side and the right side of the uterus was developed in a similar fashion. Once this was completed balloon was blown up on the Carine manipulator and uterus was pushed in and retroverted. Anterior colpotomy was then made under direct visualization and then this incision was followed in a counterclockwise fashion maintaining excellent hemostasis throughout the process until 3 and 60 was accomplished. Uterus was then brought down into the vagina to maintain pneumoperitoneum. Once excellent hemostasis was noted across the pedicles instruments removed for a cardia grasper and a make suture cut and the vaginal cuff was closed with 20 the lock suture in a running fashion. Pelvis was then irrigated excellent hemostasis was noted therefore all incidents removed and gas was allowed to expel from the abdomen. 5 deep breaths were provided during this process. Dr. Astorga at this point's close the incision subcuticular E and the patient was lowered to 70 and a cystoscopy was performed with excellent flow noted from both ureteral jets. All incidents were then removed. Sponge, lap, needle counts were all correct 2. The remaining Marcaine was injected around these incisions. Patient was then taken to the recovery room in stable and satisfactory condition.
[2019-08-03] MEDS ORDERED: KETOROLAC 30 MG/ML 1 ML VIAL IVP ONE (09:13)
[2019-08-03] MEDS: HYDROmorphone 0.5 MG/0.5 ML SYRINGE IVP PRN ×5 (09:18→09:52)
[2019-08-03] MEDS ORDERED: ONDANSETRON 4 MG/2 ML VIAL IVP ONE (10:20)
[2019-08-03] MEDS: SENNOSIDES-DOCUSATE SODIUM 1 EACH TAB PO SCH ×2 (12:12→21:13)
[2019-08-03] MEDS: KETOROLAC 30 MG/ML 1 ML VIAL IVP PRN ×2 (14:56→21:14)
[2019-08-03] MEDS: Acetaminophen-Codeine 300-30mg TAB PO PRN (17:52)
[2019-08-04] MEDS: KETOROLAC 30 MG/ML 1 ML VIAL IVP PRN (03:03)
[2019-08-04] MEDS: Acetaminophen-Codeine 300-30mg TAB PO PRN (06:27)
[2019-08-04 06:32] LABS: Basophils % (A) 0 %; Eosinophils # (A) 0.1 k/uL (0-0.7); Eosinophils % (A) 1 %; HCT 34.3 % (34.0-46.0); HGB 11.9 gm/dL (11.4-16.0); Lymphocytes # (A) 1.8 k/uL (1.0-4.8); Lymphocytes % (A) 17 %; MCH 29.4 pg (25.0-35.0); MCHC 34.6 g/dL (31.0-37.0); MCV 84.9 fL (80.0-100.0); Mean Platelet Volume 7.4; Monocytes # (A) 0.4 k/uL (0-1.0); Monocytes % (A) 3 %; Neutrophils # (A) 8.4 k/uL (1.3-7.7); Neutrophils % (A) 77 %; Platelet Count 169 k/uL (150-450); RBC 4.04 m/uL (3.80-5.40); RDW 13.3 % (11.5-15.5); WBC 10.8 k/uL (3.8-10.6)
[2019-08-04 06:38] VITALS: TEMP 97.8
--- NOTE | 2019-08-04 08:26 | P.DS ---
Providers Date of admission: 08/03/19 21:43 Expected date of discharge: 08/04/19 Attending physician: Abilio Walker Primary care physician: [facility] Course: Lynda is doing very well postop day 1. She is ambulating, voiding and tolerating her diet. She voices no complaints. Vital signs are stable and afebrile. Heart regular, lungs clear, extremities without pain. Abdomen soft positive bowel sounds are noted and her incisions are intact. Discharge instructions were thoroughly reviewed. Prescription for Motrin and Tylenol 3 are provided. She'll follow up with me in 1 week. She is stable for discharge this time. Patient Condition at Discharge: Good Plan - Discharge Summary Discharge Rx Participant: No New Discharge Prescriptions: New Ibuprofen [Motrin] 600 mg PO Q6HR PRN #30 tab PRN Reason: Pain Acetaminophen-Codeine 300-30mg [Tylenol #3] 1 tab PO Q4H PRN #30 tablet PRN Reason: Pain No Action Famotidine [Pepcid] 20 mg PO DAILY PRN PRN Reason: Heartburn Hydrochlorothiazide [Hydrodiuril] 50 mg PO DAILY Desvenlafaxine [Desvenlafaxine ER] 50 mg PO DAILY Discharge Medication List Desvenlafaxine [Desvenlafaxine ER] 50 mg PO DAILY 08/01/19 [History] Famotidine [Pepcid] 20 mg PO DAILY PRN 08/01/19 [History] Hydrochlorothiazide [Hydrodiuril] 50 mg PO DAILY 08/01/19 [History] Acetaminophen-Codeine 300-30mg [Tylenol #3] 1 tab PO Q4H PRN #30 tablet 08/04/19 [Rx] Ibuprofen [Motrin] 600 mg PO Q6HR PRN #30 tab 08/04/19 [Rx] Follow up Appointment(s)/Referral(s): Abilio Walker DO [Doctor of Osteopathic Medicine] - 1 Week Activity/Diet/Wound Care/Special Instructions: No heavy lifting, limit stairs and driving, and pelvic rest. If any high temperatures, heavy bleeding, or severe pain call my office Discharge Disposition: HOME SELF-CARE
[2019-08-04 08:55] VITALS: BP 103/64; PULSE 64; RESP 18
[2019-08-04] MEDS ORDERED: IBUPROFEN 600 MG TAB PO PRN (09:16)
[2019-08-04] MEDS: SENNOSIDES-DOCUSATE SODIUM 1 EACH TAB PO SCH (09:25)
== END 2019-08-04 10:15 | disposition home or self-care (01) ==
LOC: OR 06:08 → 6PED 09:03 → OR 22:13
PROVIDERS: ADMIT Obstetrics & Gynecology; ATTEND Obstetrics & Gynecology
DX: N92.0 Excessive and frequent menstruation with regular cycle (principal); K21.9 Gastro-esophageal reflux disease without esophagitis; E78.5 Hyperlipidemia, unspecified; I10 Essential (primary) hypertension; F17.210 Nicotine dependence, cigarettes, uncomplicated; Z86.32 Personal history of gestational diabetes; Z84.89 Family history of other specified conditions; Z83.3 Family history of diabetes mellitus; Z82.49 Family history of ischemic heart disease and other diseases of the circulatory system; Z79.899 Other long term (current) drug therapy
CPT/HCPCS: 58571; S2900; 81025; 85025; 86850; 86900; 86901; 88307

== ENCOUNTER → 2019-09-08 | Outpatient (CLI) | payer BC ==
--- NOTE | 2019-09-08 11:02 | CT ---
EXAMINATION TYPE: CT abdomen wo con DATE OF EXAM: 09/08/2019 COMPARISON: None HISTORY: incisional hernia CT DLP: 453.8 mGycm Examination of the solid and hollow viscera is limited given the lack of contrast. Unenhanced CT of t he abdomen was performed. FINDINGS: LUNG BASES: No evidence for nodule. No evidence for infiltrate. LIVER/GB: The gallbladder is unremarkable. No space-occupying hepatic lesion. PANCREAS: No pancreatic mass identified. No inflammatory process seen. SPLEEN: No evidence for splenomegaly. No intrasplenic lesions seen. ADRENALS: No adrenal nodules identified. No evidence for thickening. KIDNEYS: No evidence for renal mass. No nephrolithiasis. No hydronephrosis. BOWEL: Visualized bowel loops appear to be of normal caliber. No wall thickening noted. Partial visua lization of the appendix. Lymph nodes: No evidence for adenopathy greater than 1 cm. Abdominal aorta: Atheromatous changes seen. No evidence for aneurysm. Genital organs: No significant abnormality. Other: No significant abnormality. IMPRESSION: No evidence for incisional hernia at this time.
== END | disposition home or self-care (01) ==
LOC: RADCTMAIN 10:40
PROVIDERS: ATTEND Obstetrics & Gynecology
DX: K43.2 Incisional hernia without obstruction or gangrene (principal)
CPT/HCPCS: 74150

== ENCOUNTER → 2019-09-25 | Outpatient (CLI) | payer BC ==
--- NOTE | 2019-09-25 08:32 | USB ---
Reason for exam: clinical finding. Indicated problem(s): pain in the right breast. Physical Findings: Nurse Summary: Patient complains of right breast upper outer quadrant pain (nurse mj). US Breast RT Technologist: Zeynep Davenport Right complete breast ultrasound includes all four quadrants, the retroareolar region and axilla. Finding demonstrates no cystic or solid lesion seen. These results were verbally communicated with the patient and result sheet given to the patient on 09/25/19. ASSESSMENT: Negative, BI-RAD 1 RECOMMENDATION: Clinical management of the right breast. Manage patient on a clinical basis.
== END | disposition home or self-care (01) ==
LOC: RADUSWWP 07:39
PROVIDERS: ATTEND Obstetrics & Gynecology
DX: N64.4 Mastodynia (principal)

== ENCOUNTER 2019-12-01 10:51 | Day surgery (SDC) | payer BC ==
[2019-11-29 10:11] VITALS: BMI 29.9
[~2019-12-01 10:51] MED LIST changes: -DEXAMETHASONE SOD PHOSPHATE 10 MG/ML 1 ML VIAL IV ONE; +LIDOCAINE 1% (10MG/ML) FOR IV START INTRADERMA PRN; -MIDAZOLAM 2 MG/2 ML VIAL IV PRN; +Pre Op ABX Message 1 EACH MISC MISCELLANE ONE
[2019-12-01] MEDS ORDERED: DEXAMETHASONE SOD PHOSPHATE 10 MG/ML 1 ML VIAL IV ONE (11:26)
[2019-12-01] MEDS ORDERED: SCOPOLAMINE 1.5MG/72HR PATCH TRANSDERM ONE (11:27)
[2019-12-01] MEDS: LACTATED RINGERS 1,000 ML IV SCH ×2 (11:30→13:44)
[2019-12-01] MEDS ORDERED: MIDAZOLAM 2 MG/2 ML VIAL IV ONE (12:01)
[2019-12-01] MEDS ORDERED: KETOROLAC 15 MG/ML 1 ML VIAL ONE (12:26)
[2019-12-01] MEDS ORDERED: PROPOFOL 10 MG/ML 20 ML VIAL IV ONE (12:26)
[2019-12-01] MEDS ORDERED: LIDOCAINE 1% INJ 10MG/ML (20 ML MDV) ONE (12:26)
[2019-12-01] MEDS ORDERED: MIDAZOLAM 2 MG/2 ML VIAL ONE (12:26)
[2019-12-01] MEDS ORDERED: fentaNYL (PF) 50 MCG/ML 2 ML AMP ONE (12:26)
--- NOTE | 2019-12-01 13:17 | P.OP ---
Date of Procedure: 12/01/19 Preoperative Diagnosis: Vaginal pain following surgery Postoperative Diagnosis: Same Procedure(s) Performed: Exam under anesthesia Anesthesia: MAC Surgeon: Abilio Walker Estimated Blood Loss (ml): 0 Pathology: none sent Condition: stable Disposition: same day Operative Findings: No gross findings Description of Procedure: Patient was taken to the operating suite where a general anesthetic was found be adequate. She was prepped and draped in normal sterile fashion and placed in the dorsal lithotomy position. Initially I did do a digital exam and I could not feel any sutures or hard sharp areas or other issues. Therefore bivalved speculum was used since the 90 angle speculum were not allowing me to have could not visualization. With bivalve speculum were able to thoroughly evaluate and visualize the vaginal cuff. There were no areas of concern. Everything appeared to be healed well. I could not palpate or visualize any suture material. At this point removed all instruments. I did do a rectal exam following change of glove to try and palpate behind the vaginal cuff but there was hard stool in the rectum and I could not feel quite that far back. Once this was concluded all incidents removed and patient was sent to the recovery r oom in stable and satisfactory condition. I did speak with her following surgery and he did indicate that her pain seemed to be bit better over the last few days. Will see her in a week and reevaluate. If pain is still present will refer her to [facility] pelvic pain clinic. Plan - Discharge Summary Discharge Rx Participant: Yes New Discharge Prescriptions: No Action Famotidine [Pepcid] 20 mg PO DAILY PRN PRN Reason: Heartburn hydroCHLOROthiazide [Hydrodiuril] 50 mg PO QAM Desvenlafaxine [Desvenlafaxine ER] 50 mg PO QAM busPIRone HCL [Buspar] 7.5 mg PO BID Discharge Medication List Desvenlafaxine [Desvenlafaxine ER] 50 mg PO QAM 08/01/19 [History] Famotidine [Pepcid] 20 mg PO DAILY PRN 08/01/19 [History] hydroCHLOROthiazide [Hydrodiuril] 50 mg PO QAM 08/01/19 [History] busPIRone HCL [Buspar] 7.5 mg PO BID 11/29/19 [History] Follow up Appointment(s)/Referral(s): Abilio Walker DO [Doctor of Osteopathic Medicine] - 12/07/19 Patient Instructions/Handouts: *Surgery [facility] - Scopalamine Patch Instructions Discharge Disposition: HOME SELF-CARE
[2019-12-01 13:21] VITALS: TEMP 97
[2019-12-01 14:32] VITALS: BP 116/73; PULSE 56; RESP 20
== END 2019-12-01 14:56 | disposition home or self-care (01) ==
LOC: OR 10:51
PROVIDERS: ATTEND Obstetrics & Gynecology
DX: F17.210 Nicotine dependence, cigarettes, uncomplicated (principal); F32.9 Major depressive disorder, single episode, unspecified; K21.9 Gastro-esophageal reflux disease without esophagitis; Z79.899 Other long term (current) drug therapy; Z90.710 Acquired absence of both cervix and uterus; Z98.891 History of uterine scar from previous surgery; Z98.890 Other specified postprocedural states
CPT/HCPCS: 57410; J2250; J1100; J2405; J2001; J3010; J1885; J2704

== ENCOUNTER 2020-02-16 10:49 | Emergency (ER) | payer OTHER, BC ==
[2020-02-16 10:56] VITALS: RESP 16; TEMP 98.7
[2020-02-16 11:19] LABS: Basophils # (A) 0.1 k/uL (0-0.2); Basophils % (A) 1 %; Eosinophils # (A) 0.2 k/uL (0-0.7); Eosinophils % (A) 3 %; HCT 42.9 % (34.0-46.0); HGB 15.4 gm/dL (11.4-16.0); Lymphocytes # (A) 1.6 k/uL (1.0-4.8); Lymphocytes % (A) 21 %; MCHC 35.8 g/dL (31.0-37.0); MCV 83.7 fL (80.0-100.0); Mean Platelet Volume 6.9; Monocytes # (A) 0.3 k/uL (0-1.0); Monocytes % (A) 3 %; Neutrophils # (A) 5.5 k/uL (1.3-7.7); Neutrophils % (A) 70 %; Platelet Count 202 k/uL (150-450); RBC 5.12 m/uL (3.80-5.40); RDW 12.3 % (11.5-15.5); WBC 7.8 k/uL (3.8-10.6)
[2020-02-16] MEDS ORDERED: MORPHINE SULFATE 2 MG/ML SYRINGE IVP STA (11:25)
[2020-02-16] MEDS ORDERED: ONDANSETRON 4 MG/2 ML VIAL IVP STA (11:25)
[2020-02-16 11:27] LABS: Partial Thromboplastin Time 24.6 sec (22.0-30.0); Prothrombin Time 10.2 sec (9.0-12.0)
[2020-02-16 11:28] LABS: ALT 31 U/L (4-34); AST 28 U/L (14-36); African American GFR (CKD) >90 (>60 ml/min/1.73 sqM); Albumin 4.7 g/dL (3.5-5.0); Alkaline Phosphatase 48 U/L (38-126); Anion Gap 7 mmol/L; Blood Urea Nitrogen 9 mg/dL (7-17); Calcium 9.5 mg/dL (8.4-10.2); Carbon Dioxide 30 mmol/L (22-30); Chloride 102 mmol/L (98-107); Glucose 102 mg/dL (74-99); Non-African American GFR(CKD) >90 (>60 ml/min/1.73 sqM); Sodium 139 mmol/L (137-145); Total Bilirubin 0.6 mg/dL (0.2-1.3); Total Protein 7.8 g/dL (6.3-8.2)
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
[2020-02-16 12:56] VITALS: BP 115/78; PULSE 67
[2020-02-16] MEDS ORDERED: ORPHENADRINE 30 MG/ML 2 ML VIAL IVP STA (12:59)
[2020-02-16] MEDS ORDERED: KETOROLAC 15 MG/ML 1 ML VIAL IVP STA (12:59)
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
[2020-02-16 13:03] LABS: Appearance,Urine Clear (Clear); Bilirubin,Urine Negative (Negative); Blood,Urine Negative (Negative); Color,Urine Light Yellow; Glucose,Urine (UA) Negative (Negative); Ketones,Urine Negative (Negative); Leukocyte Esterase,Urine Negative (Negative); Nitrite,Urine Negative (Negative); PH, Urine 7.5 (5.0-8.0); Protein,Urine Negative (Negative); Specific Gravity,Urine 1.005 (1.001-1.035); Urobilinogen,Urine <2.0 mg/dL (<2.0)
[2020-02-16] MEDS ORDERED: ACET/COD 300 MG/30 MG STARTER PACK 6 TAB BTL PO STA (13:23)
[2020-02-16] MEDS ORDERED: CYCLOBENZAPRINE 10MG STARTER 3 TAB BTL PO STA (13:23)
== END 2020-02-16 13:54 | disposition home or self-care (01) ==
LOC: EC 10:49
DX: S16.1XXA Strain of muscle, fascia and tendon at neck level, initial encounter (principal); M54.6 Pain in thoracic spine; F41.9 Anxiety disorder, unspecified; F32.9 Major depressive disorder, single episode, unspecified; F17.200 Nicotine dependence, unspecified, uncomplicated; K21.9 Gastro-esophageal reflux disease without esophagitis; I10 Essential (primary) hypertension; Z79.899 Other long term (current) drug therapy; Z90.710 Acquired absence of both cervix and uterus; V43.52XA Car driver injured in collision with other type car in traffic accident, initial encounter; Y93.89 Activity, other specified; Y92.410 Unspecified street and highway as the place of occurrence of the external cause
CPT/HCPCS: 36415; 93005; 80053; 84484; 85025; 85610; 85730; 81003; 81025; 72072; 72100; 72170; 71046; 72125; 70450; 99285; 96374; 96375 ×3; L0120; J2360; J2405; J2270; J1885

== ENCOUNTER 2020-04-22 12:04 | Emergency (ER) | payer BC ==
[2020-04-22 12:11] VITALS: RESP 18; TEMP 98.7
[2020-04-22 12:17] LABS: Glucose,Whole Blood 130 mg/dL (75-99)
--- NOTE | 2020-04-22 12:56 | CT ---
EXAMINATION TYPE: CT brain wo con for TPA DATE OF EXAM: 04/22/2020 COMPARISON: CT brain February 16, 2020 HISTORY: left side numbness, code stroke. CT DLP: unavailable mGycm. Automated Exposure Control for Dose Reduction was Utilized. TECHNIQUE: CT scan of the head is performed without contrast. FINDINGS: There is no acute intracranial hemorrhage, mass effect, or midline shift identified. The ventricles and sulci are within normal limits in size. Jacques-white matter differentiation is maintain ed . The globes are intact and the visualized sinuses are clear. IMPRESSION: Unremarkable study. No significant change from prior.
[2020-04-22 13:00] LABS: Basophils # (A) 0.1 k/uL (0-0.2); Basophils % (A) 1 %; Eosinophils # (A) 0.2 k/uL (0-0.7); Eosinophils % (A) 2 %; HCT 45.4 % (34.0-46.0); HGB 16.1 gm/dL (11.4-16.0); Lymphocytes # (A) 2.2 k/uL (1.0-4.8); Lymphocytes % (A) 27 %; MCH 29.9 pg (25.0-35.0); MCHC 35.5 g/dL (31.0-37.0); MCV 84.2 fL (80.0-100.0); Mean Platelet Volume 6.7; Monocytes # (A) 0.3 k/uL (0-1.0); Monocytes % (A) 4 %; Neutrophils # (A) 5.2 k/uL (1.3-7.7); Neutrophils % (A) 65 %; Platelet Count 216 k/uL (150-450); RDW 12.4 % (11.5-15.5)
[2020-04-22 13:09] LABS: ALT 30 U/L (4-34); AST 32 U/L (14-36); African American GFR (CKD) >90 (>60 ml/min/1.73 sqM); Albumin 5.1 g/dL (3.5-5.0); Alkaline Phosphatase 53 U/L (38-126); Anion Gap 11 mmol/L; Blood Urea Nitrogen 12 mg/dL (7-17); Calcium 9.7 mg/dL (8.4-10.2); Carbon Dioxide 28 mmol/L (22-30); Chloride 101 mmol/L (98-107); Glucose 107 mg/dL (74-99); Non-African American GFR(CKD) >90 (>60 ml/min/1.73 sqM); Potassium 3.3 mmol/L (3.5-5.1); Prothrombin Time 10.4 sec (9.0-12.0); Sodium 140 mmol/L (137-145); Total Bilirubin 0.6 mg/dL (0.2-1.3); Total Protein 8.4 g/dL (6.3-8.2)
--- NOTE | 2020-04-22 13:26 | CT ---
EXAMINATION TYPE: CT angio head neck DATE OF EXAM: 04/22/2020 HISTORY: left side numbness, acute onset neuro deficit. COMPARISON: None. CT DLP: 625.4 mGycm. Automated Exposure Control for Dose Reduction was Utilized. TECHNIQUE: CTA scan of the head and neck are performed with IV Contrast, patient injected with 65 mL of Isovue 370, axial images are obtained, coronal and sagittal reformatted images are reviewed. Thre e-D reconstructed images are created on an independent workstation and reviewed. FINDINGS: Carotid/Vascular Structures: Normal 3 vessel origin from the aortic arch. No significant plaque or st enosis. Normal origin right common carotid artery from the right brachiocephalic artery. Some artifac t at origin makes evaluation slightly suboptimal. No significant plaque or stenosis in the common or internal carotid arteries bilaterally including the carotid bulbs. No significant plaque or stenosis in the external carotid arteries. Patent codominant vertebral arteries to the basilar junction. No significant focal stenosis or aneury smal change. Patent right posterior communicating artery filling right P2 segment. Hypoplastic right P1 segment Hypoplastic left posterior communicating artery. No significant focal stenosis or aneurysm al change identified. Images of the anterior circulation show hypoplastic right A1 segment with filli ng of the A2 segment due to patent anterior communicating artery. No significant focal stenosis or an eurysmal change. Other: Focal mild to moderate posterior inferior mucosal thickening in the left maxillary sinus. IMPRESSION: No significant stenosis in the common or internal carotid arteries. Normal variant circl e of Christian. No significant focal stenosis or aneurysm.
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
[2020-04-22] MEDS ORDERED: ASPIRIN 325 MG TAB PO STA (14:35)
--- NOTE | 2020-04-22 14:39 | XR ---
EXAMINATION TYPE: XR chest 2V DATE OF EXAM: 04/22/2020 COMPARISON: Prior chest x-ray 02/16/2020 HISTORY: Altered mental status, left shoulder pain, numbness in face on left side TECHNIQUE: Frontal and lateral views of the chest are obtained. FINDINGS: There is no focal air space opacity, pleural effusion, or pneumothorax seen. The cardiac silhouette size is within normal limits. There are overlying leads. The osseous structures are intac t. IMPRESSION: No acute cardiopulmonary process.
[2020-04-22 15:52] VITALS: BP 127/84; PULSE 69
[2020-04-22] MEDS ORDERED: CYCLOBENZAPRINE 5 MG TAB PO PRN (16:16)
[2020-04-22] MEDS ORDERED: MELATONIN 3 MG TABLET PO PRN (16:16)
[2020-04-22] MEDS ORDERED: POTASSIUM CHLORIDE ER 20 MEQ TAB.ER PO STA (16:16)
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
[2020-04-22] MEDS ORDERED: ATORVASTATIN 40 MG TAB PO SCH (21:00)
[2020-04-22] MEDS ORDERED: FAMOTIDINE 20 MG TAB PO SCH (21:00)
[2020-04-22] MEDS ORDERED: HEPARIN SODIUM,PORCINE 5,000 UNIT/ML 1 ML VIAL SQ SCH (21:00)
[2020-04-22] MEDS ORDERED: busPIRone HCl 5 MG TAB PO SCH (21:00)
[2020-04-23] MEDS ORDERED: DESVENLAFAXINE SUCCINATE 50 MG TAB.ER.24H PO SCH (09:00)
[2020-04-23] MEDS ORDERED: hydroCHLOROthiazide 25 MG TAB PO SCH (09:00)
[2020-04-23] MEDS ORDERED: ASPIRIN 325 MG TAB PO SCH (14:37)
== END 2020-04-22 18:09 | disposition left against medical advice (07) ==
LOC: EC 12:04 → 3SCARD 14:35 → UNDOADMIN 14:35 → EC 18:09
DX: I63.9 Cerebral infarction, unspecified (principal); E11.9 Type 2 diabetes mellitus without complications; E78.5 Hyperlipidemia, unspecified; F17.200 Nicotine dependence, unspecified, uncomplicated; F41.9 Anxiety disorder, unspecified; K21.9 Gastro-esophageal reflux disease without esophagitis; Z79.899 Other long term (current) drug therapy; Z79.84 Long term (current) use of oral hypoglycemic drugs
CPT/HCPCS: 99284; 36415; 93005; 80053; 84484; 85025; 85610; 85730; 87635; 71046; 70496; 70450; 70498; Q9967

== ENCOUNTER 2020-04-24 14:43 | Emergency (ER) | payer BC, OTHER ==
[2020-04-24 14:49] VITALS: BP 131/90; PULSE 98; RESP 17; TEMP 97.9
--- NOTE | 2020-04-24 15:47 | ED ---
Neuro HPI - General Chief Complaint: Neuro Symptoms/Deficit Stated Complaint: left side going numb Time Seen by Provider: 04/24/20 14:45 Source: patient Mode of arrival: ambulatory Limitations: no limitations - History of Present Illness Is the patient presenting with stroke symptoms?: Yes Initial Comments: 34-year-old female with past history of diabetes, hypertension, hyperlipidemia, anxiety who presents emergency Department with reported left facial numbness and left numbness of her upper and lower extremity. Patient was seen in the emergency department on the first for similar complaint. Stroke workup was negative in the emergency department however the patient was admitted to the floor for neurology consultation. After the patient was evaluated by the hospitalist the patient did request to leave AGAINST MEDICAL ADVICE. States that she went home and her symptoms improved however when she awoke this morning symptoms once again worsened at 11 AM. States that her symptoms are "tenfold" what they were 2 days ago. States that she has not followed up with her primary care physician in regards to her symptoms. Has never seen a neurologist. Denies previous history of stroke or other neurologic disorder. She also admits to subjective weakness in her left upper extremity. No speech difficulties. Denies any visual changes. No chest pain or shortness of breath. Denies any fevers or chills. No concern for . No other alleviating, precipitating or modifying factors. - Related Data Home Medications: Home Medications Medication Instructions Recorded Confirmed Desvenlafaxine [Desvenlafaxine ER] 50 mg PO QAM 08/01/19 04/24/20 Famotidine [Pepcid] 20 mg PO BID PRN 08/01/19 04/24/20 busPIRone HCL [Buspar] 7.5 mg PO BID 11/29/19 04/24/20 Atorvastatin [Lipitor] 10 mg PO DAILY 04/22/20 04/24/20 Cyclobenzaprine [Flexeril] 5 mg PO DAILY PRN 04/22/20 04/24/20 Melatonin 3 mg PO HS PRN 04/22/20 04/24/20 hydroCHLOROthiazide [Hydrodiuril] 25 mg PO DAILY 04/22/20 04/24/20 Loratadine [Claritin] 10 mg PO DAILY 04/24/20 04/24/20 Allergies/Adverse Reactions: Allergies Allergy/AdvReac Type Severity Reaction Status Date / Time No Known Allergies Allergy Verified 04/24/20 15:41 Review of Systems ROS Statement: Those systems with pertinent positive or pertinent negative responses have been documented in the HPI. ROS Other: All systems not noted in ROS Statement are negative. General Exam Limitations: no limitations General appearance: alert, in no apparent distress Head exam: Present: atraumatic, normocephalic, normal inspection Eye exam: Present: normal appearance, PERRL, EOMI. Absent: scleral icterus, conjunctival injection, periorbital swelling ENT exam: Present: normal exam, mucous membranes moist Neck exam: Present: normal inspection. Absent: tenderness, meningismus, lymphadenopathy Respiratory exam: Present: normal lung sounds bilaterally. Absent: respiratory distress, wheezes, rales, rhonchi, stridor Cardiovascular Exam: Present: regular rate, normal rhythm, normal heart sounds. Absent: systolic murmur, diastolic murmur, rubs, gallop, clicks GI/Abdominal exam: Present: soft, normal bowel sounds. Absent: distended, tenderness, guarding, rebound, rigid Extremities exam: Present: normal inspection, full ROM, normal capillary refill, other (Equal grip boss strength. Patient has intact sensation with both sharp and blunt objects. ). Absent: tenderness, pedal edema, joint swelling, calf tenderness Back exam: Present: normal inspection Neurological exam: Present: alert, oriented X3, CN II-XII intact Psychiatric exam: Present: normal affect, normal mood Skin exam: Present: warm, dry, intact, normal color. Absent: rash Stroke MDM - Lab Data Result diagrams: 04/24/20 15:43 04/24/20 15:43 Lab Results 04/24/20 04/24/20 04/24/20 Range/Units 15:43 15:43 15:43 WBC 9.2 (3.8-10.6) k/uL RBC 5.05 (3.80-5.40) m/uL Hgb 15.1 (11.4-16.0) gm/dL Hct 42.1 (34.0-46.0) % MCV 83.3 (80.0-100.0) fL MCH 29.8 (25.0-35.0) pg MCHC 35.8 (31.0-37.0) g/dL RDW 12.3 (11.5-15.5) % Plt Count 216 (150-450) k/uL MPV 6.9 Neutrophils % 66 % Lymphocytes % 26 % Monocytes % 4 % Eosinophils % 2 % Basophils % 1 % Neutrophils # 6.0 (1.3-7.7) k/uL Lymphocytes # 2.4 (1.0-4.8) k/uL Monocytes # 0.4 (0-1.0) k/uL Eosinophils # 0.2 (0-0.7) k/uL Basophils # 0.1 (0-0.2) k/uL Hyperchromasia Slight PT 10.0 (9.0-12.0) sec INR 0.9 (<1.2) APTT 22.2 (22.0-30.0) sec Sodium 139 (137-145) mmol/L Potassium 3.7 (3.5-5.1) mmol/L Chloride 99 (98-107) mmol/L Carbon Dioxide 32 H (22-30) mmol/L Anion Gap 8 mmol/L BUN 14 (7-17) mg/dL Creatinine 0.76 (0.52-1.04) mg/dL Est GFR (CKD-EPI)AfAm >90 (>60 ml/min/1.73 sqM) Est GFR (CKD-EPI)NonAf >90 (>60 ml/min/1.73 sqM) Glucose 90 (74-99) mg/dL Calcium 9.4 (8.4-10.2) mg/dL Total Bilirubin 0.5 (0.2-1.3) mg/dL AST 33 (14-36) U/L ALT 30 (4-34) U/L Alkaline Phosphatase 51 (38-126) U/L Troponin I (0.000-0.034) ng/mL Total Protein 8.3 H (6.3-8.2) g/dL Albumin 5.0 (3.5-5.0) g/dL Urine Color Urine Appearance (Clear) Urine pH (5.0-8.0) Ur Specific [place] (1.001-1.035) Urine Protein (Negative) Urine Glucose (UA) (Negative) Urine Ketones (Negative) Urine Blood (Negative) Urine Nitrite (Negative) Urine Bilirubin (Negative) Urine Urobilinogen (<2.0) mg/dL Ur Leukocyte Esterase (Negative) Urine HCG, Qual (Not Detectd) 03/05/1204/24/20 04/24/20 Range/Units 15:43 15:43 15:43 WBC (3.8-10.6) k/uL RBC (3.80-5.40) m/uL Hgb (11.4-16.0) gm/dL Hct (34.0-46.0) % MCV (80.0-100.0) fL MCH (25.0-35.0) pg MCHC (31.0-37.0) g/dL RDW (11.5-15.5) % Plt Count (150-450) k/uL MPV Neutrophils % % Lymphocytes % % Monocytes % % Eosinophils % % Basophils % % Neutrophils # (1.3-7.7) k/uL Lymphocytes # (1.0-4.8) k/uL Monocytes # (0-1.0) k/uL Eosinophils # (0-0.7) k/uL Basophils # (0-0.2) k/uL Hyperchromasia PT (9.0-12.0) sec INR (<1.2) APTT (22.0-30.0) sec Sodium (137-145) mmol/L Potassium (3.5-5.1) mmol/L Chloride (98-107) mmol/L Carbon Dioxide (22-30) mmol/L Anion Gap mmol/L BUN (7-17) mg/dL Creatinine (0.52-1.04) mg/dL Est GFR (CKD-EPI)AfAm (>60 ml/min/1.73 sqM) Est GFR (CKD-EPI)NonAf (>60 ml/min/1.73 sqM) Glucose (74-99) mg/dL Calcium (8.4-10.2) mg/dL Total Bilirubin (0.2-1.3) mg/dL AST (14-36) U/L ALT (4-34) U/L Alkaline Phosphatase (38-126) U/L Troponin I <0.012 (0.000-0.034) ng/mL Total Protein (6.3-8.2) g/dL Albumin (3.5-5.0) g/dL Urine Color Light Yellow Urine Appearance Clear (Clear) Urine pH 6.0 (5.0-8.0) Ur Specific [place] 1.010 (1.001-1.035) Urine Protein Negative (Negative) Urine Glucose (UA) Negative (Negative) Urine Ketones Negative (Negative) Urine Blood Negative (Negative) Urine Nitrite Negative (Negative) Urine Bilirubin Negative (Negative) Urine Urobilinogen <2.0 (<2.0) mg/dL Ur Leukocyte Esterase Negative (Negative) Urine HCG, Qual Not Detected (Not Detectd) - Medical Decision Making On arrival patient is placed in room 28. I did review her chart from previous. NIH stroke scale is performed. She does have subjective numbness to the left arm and leg however patient is able to appreciate both sharp and blunt objects remaining exam. NIH is 0. Laboratory studies are performed. Repeat CT is performed which demonstrates no acute process. Did discuss staying with the patient for which she did agree to. Spoke with Dr. London who agreed to admit the patient. She is currently awaiting a bed on the floor Patient admitted for 2 hours when she gets up and elopes. Made a statement to her nurse that her family had a medical emergency. 04/24/20 16:30 EKG demonstrates normal sinus rhythm with a ventricular rate of 74. SC interval 156. QRS 92. QTC 419. No acute ST segment elevations or depressions concerning for ischemic changes no signs of [id number]-Byjij or Brugada s yndrome Past Medical History Past Medical History: Diabetes Mellitus, GERD/Reflux, Hyperlipidemia, Hypertension Additional Past Medical History / Comment(s): Gestational Diabetes. History of Any Multi-Drug Resistant Organisms: None Reported Past Surgical History: Bladder Surgery, Section, Hysterectomy, Tubal Ligation, Uterine Ablation Additional Past Surgical History / Comment(s): Pubo-vaginal sling. Past Anesthesia/Blood Transfusion Reactions: Family History of Problems w/ Anesthesia, Motion Sickness, Postoperative Nausea & Vomiting (PONV) Additional Past Anesthesia/Blood Transfusion Reaction / Comment(s): Family members with PONV. Past Psychological History: Anxiety, Depression Smoking Status: Current every day smoker Past Alcohol Use History: Rare Past Drug Use History: None Reported - Past Family History Mother Family Medical History: Diabetes Mellitus, Deep Vein Thrombosis (DVT), Pulmonary Embolus Sister(s) Family Medical History: Deep Vein Thrombosis (DVT) Additional Family Medical History / Comment(s): Blood clotting disorder. Course Vital Signs 04/24/20 14:45 Temperature 97.9 F Pulse Rate 98 Respiratory 17 Rate Blood Pressure 131/90 O2 Sat by Pulse 100 Oximetry Disposition Clinical Impression: Left sided numbness Disposition: Left Against Medical Advice Condition: Stable Is patient prescribed a controlled substance at d/c from ED?: No Referrals: Caden Maher MD [Primary Care Provider] - 1-2 days Decision to Admit Reason: Admit from EC Decision Date: 04/24/20 Decision Time: 16:42
[2020-04-24 16:06] LABS: Basophils # (A) 0.1 k/uL (0-0.2); Basophils % (A) 1 %; Eosinophils # (A) 0.2 k/uL (0-0.7); Eosinophils % (A) 2 %; HCT 42.1 % (34.0-46.0); HGB 15.1 gm/dL (11.4-16.0); Hyperchromasia Slight; Lymphocytes # (A) 2.4 k/uL (1.0-4.8); Lymphocytes % (A) 26 %; MCH 29.8 pg (25.0-35.0); MCHC 35.8 g/dL (31.0-37.0); MCV 83.3 fL (80.0-100.0); Mean Platelet Volume 6.9; Monocytes # (A) 0.4 k/uL (0-1.0); Monocytes % (A) 4 %; Neutrophils % (A) 66 %; Platelet Count 216 k/uL (150-450); RBC 5.05 m/uL (3.80-5.40); RDW 12.3 % (11.5-15.5); WBC 9.2 k/uL (3.8-10.6)
[2020-04-24 16:07] LABS: Appearance,Urine Clear (Clear); Bilirubin,Urine Negative (Negative); Blood,Urine Negative (Negative); Color,Urine Light Yellow; Glucose,Urine (UA) Negative (Negative); Ketones,Urine Negative (Negative); Leukocyte Esterase,Urine Negative (Negative); Nitrite,Urine Negative (Negative); Protein,Urine Negative (Negative); Urobilinogen,Urine <2.0 mg/dL (<2.0)
[2020-04-24 16:15] LABS: ALT 30 U/L (4-34); AST 33 U/L (14-36); African American GFR (CKD) >90 (>60 ml/min/1.73 sqM); Alkaline Phosphatase 51 U/L (38-126); Anion Gap 8 mmol/L; Blood Urea Nitrogen 14 mg/dL (7-17); Calcium 9.4 mg/dL (8.4-10.2); Carbon Dioxide 32 mmol/L (22-30); Chloride 99 mmol/L (98-107); Glucose 90 mg/dL (74-99); Non-African American GFR(CKD) >90 (>60 ml/min/1.73 sqM); Potassium 3.7 mmol/L (3.5-5.1); Sodium 139 mmol/L (137-145); Total Bilirubin 0.5 mg/dL (0.2-1.3); Total Protein 8.3 g/dL (6.3-8.2)
[2020-04-24 16:16] LABS: INR 0.9 (<1.2); Partial Thromboplastin Time 22.2 sec (22.0-30.0)
--- NOTE | 2020-04-24 16:30 | CT ---
EXAMINATION TYPE: CT brain wo con DATE OF EXAM: 04/24/2020 COMPARISON: 04/22/2020 INDICATION: Left side numbness DLP: 1039.4 mGycm, Automated exposure control for dose reduction was used. CONTRAST: None CT of the brain is performed utilizing 3 mm thick sections through the posterior fossa and 3 mm thick sections through the remaining calvarium. Study is performed within 24 hours of arrival to the [facility]. No abnormal hyperdensity is present to suggest an acute intracranial hemorrhage. No mass lesion is evident. No acute infarcts are evident. Ventricles and sulci are appropriate for the patient age. Paranasal sinuses and mastoid air cells within the [id number] are clear. IMPRESSIONS: 1. Normal CT Brain. No acute intracranial process or interval change is evident.
[2020-04-24] MEDS ORDERED: ATORVASTATIN 40 MG TAB PO STA (16:39)
[2020-04-24] MEDS ORDERED: ASPIRIN 325 MG TAB PO STA (16:39)
[2020-04-24] MEDS ORDERED: NALOXONE 0.4 MG/ML 1 ML VIAL IV PRN (16:43)
[2020-04-25] MEDS ORDERED: ATORVASTATIN 40 MG TAB PO SCH (09:00)
[2020-04-25] MEDS ORDERED: ASPIRIN 325 MG TAB PO SCH (12:00)
== END 2020-04-24 19:20 | disposition left against medical advice (07) ==
LOC: EC 14:43 → 3SCARD 16:43 → UNDOADMOB 16:43 → 3SCARD 18:32 → EC 19:20
DX: R20.0 Anesthesia of skin (principal); E11.9 Type 2 diabetes mellitus without complications; E78.5 Hyperlipidemia, unspecified; I10 Essential (primary) hypertension; F41.9 Anxiety disorder, unspecified; F32.9 Major depressive disorder, single episode, unspecified; F17.200 Nicotine dependence, unspecified, uncomplicated; K21.9 Gastro-esophageal reflux disease without esophagitis; Z90.710 Acquired absence of both cervix and uterus; Z98.51 Tubal ligation status; Z53.29 Procedure and treatment not carried out because of patient's decision for other reasons
CPT/HCPCS: 36415; 70450; 80053; 81003; 81025; 84484; 85025; 85610; 85730; 93005; 99284

== ENCOUNTER → 2023-05-25 | Outpatient (CLI) | payer BC ==
--- NOTE | 2023-06-10 12:56 | ECHOS ---
STRESS ECHOCARDIOGRAM This is a 14 day event monitor that the patient only wore for 6 days. INDICATIONS: Palpitations. In the provided rhythm strips, the patient had sinus rhythm with episodes of sinus bradycardia with a heart rate of 58 beats per minute. CONCLUSIONS: As above. MMODL / IJN: [id number] /
== END | disposition home or self-care (01) ==
LOC: RADECHMAIN 12:11
PROVIDERS: ATTEND Family Medicine
DX: R00.2 Palpitations (principal); R00.1 Bradycardia, unspecified
CPT/HCPCS: 93270